=== PATIENT | female | born 2000 | race Two or more races ===

== ENCOUNTER 2020-12-15 18:49 | Emergency (ER) | payer OTHER, SELFPAY ==
--- NOTE | ~2020-12-15 | US_ITS ---
EXAMINATION: US VENOUS WITH DOPPLER UPPER EXTREMITY, LEFT CLINICAL INFORMATION: Left upper extremity pain COMPARISON: None TECHNIQUE: Ultrasound of the upper extremity is performed using compression sonography and color and pulse Doppler flow with assessment of augmentation of flow. There is also imaging and Doppler assessment of the jugular and subclavian veins. Spectral analysis with color-flow imaging is performed. FINDINGS: There is an echogenic clot seen in the left jugular vein. Respiratory variation, normal compression, and augmented flow are noted throughout the upper extremity including subclavian, axillary, brachial, cubital, and radial and ulnar veins. There is normal flow in the internal jugular and subclavian veins. There is no visible deep or superficial thrombophlebitis. If the patient's symptoms progress, a followup ultrasound in 5 -7 days might be of value to exclude proximal propagation from a nonvisualized distal arm vein. US/US venous duplex UE LT IMPRESSION: There is nonocclusive echogenic clot seen in the left internal jugular vein. The left subclavian, axillary and rest of left upper extremity veins are patent.
[2020-12-15 18:56] VITALS: BP 116/70; PULSE 90; RESP 18; TEMP 36.8; O2SAT 99; BMI 27.0
[2020-12-15 19:38] LABS: Glucose Urine UA NEG (NEG); Leukocyte Esterase Urine NEG (NEG); Nitrite Urine NEG (NEG); Specific Gravity - Urine 1.025 (1.005-1.025); UPreg QC Valid YES; Urine Blood NEG (NEG); Urine Ketones 5 MG/DL (NEG); Urine Pregnancy POSITIVE (NEGATIVE); Urine Protein NEG (NEG-TRACE)
[2020-12-15 19:39] LABS: Appearance Urine CLEAR; Color Urine YELLOW
--- NOTE | 2020-12-15 21:05 | ED_ITS ---
HPI - General Adult General Chief complaint: General Medical Stated complaint: ? arm pain Time Seen by Provider: 12/15/20 19:33 Source: patient Mode of arrival: ambulatory Limitations: no limitations History of Present Illness HPI narrative: patient presents to ED for left shoulder /upper arm pain that is worse on movement. patient states having pain since this morning. Patient denies any trauma to left upper extremity. Patient also would like a urinary test to see if she is . Patient missed her period. Related Data Allergies Allergy/AdvReac Type Severity Reaction Status Date / Time No Known Allergies Allergy Verified 12/15/20 18:56 Review of Systems Review of Systems: Yes all other systems are reviewed and are negative Constitutional: Constitutional: Reports as per HPI and Reports no additional constitutional complaints Eyes: Eyes: Reports as per HPI and Reports no additional eye complaints ENT: Reports system reviewed and no additional complaints, except as documented and Reports as per HPI Cardiovascular: Cardiovascular: Reports as per HPI and Reports no additional cardiovascular complaints Respiratory: Respiratory: Reports as per HPI and Reports no additional respiratory complaints Gastrointestinal: Gastrointestinal: Reports as per HPI and Reports no additional gastrointestinal complaints Genitourinary: Genitourinary: Reports no additional female genitourinary complaints and Reports as per HPI Musculoskeletal: Musculoskeletal: Reports no additional musculoskeletal complaints, Reports as per HPI and Reports arthralgias ( Left shoulder pain) Neurologic: Reports system reviewed and no additional complaints, except as d ocumented and Reports as per HPI Psychiatric: Psychiatric: Reports no additional psychiatric complaints and Reports as per HPI [facility] Past Medical History Medical History (Updated 12/15/20 @ 21:26 by KAMI Herman) No pertinent past medical history Social History Social History Advance Directives: No Advance Directives Information Provided: Yes Physical Exam Vital Signs: Vital Signs: Last Vital Signs Temp 98.2 F 12/15/20 18:56 Pulse 90 12/15/20 18:56 Resp 18 12/15/20 18:56 BP 116/70 12/15/20 18:56 Pulse Ox 99 12/15/20 18:56 Body Mass Index 27.0 Const: General: cooperative, healthy appearing, comfortable, no acute distress, well developed, alert and awake; No Physically active Orientation/consciousness: patient oriented x3 HENMT: Head: Yes normal to inspection, Yes No palpable skull fracture present, Yes normocephalic, Yes atraumatic and No abrasion Eyes: General: appearance normal, both eyes and all related structures Neck: Neck: Yes normal visual inspection, Yes full ROM, Yes no lymphadenopathy, Yes no meningeal signs, Yes trachea midline, Yes supple and No tender Chest: Chest palpation & inspection: normal inspection of the chest and normal palpation of entire chest wall Resp: Effort & Inspection: normal respiratory effort and able to speak in complete sentences Auscultation: clear to auscultation bilaterally Cardio: Jugular venous distension: no JVD Heart sounds: S1 normal heart sound present and S2 normal heart sound present GI: Inspection: Yes normal to inspection and No abdominal wall ecchymosis Palpation (GI): Soft to palpation, not firm, nontender and no guarding : General: No CVA tenderness and Yes no CVA tenderness Back/Spine/Pelvis: Back: no CVA tenderness, No CVA tenderness and No back tenderness Skin: General skin exam: no rashes or lesions noted and elasticity normal Neuro: General: patient oriented x3, gait normal, no meningeal signs and CN's II-XI intact bilaterally Cranial nerves: Yes CN's II-XII intact bilaterally Extrem: General: Yes normal to inspection Shoulder/upper arm images: 1. tenderness on palpation and on range of motion. Negative for any erythema, warmth, swelling of left upper extremity, coldness, or hotness. Vascular is/motor/ neuro exam of left upper extremity intact. negative for any deformity or ecchymosis of left upper extremity. Not suspecting fracture Psych: Appearance: grossly normal, well kempt and not disheveled Course Course Course Narrative: patient positive. Patient and family refused x-ray due to radiation exposure. Not suspecting fracture may be muscular but due to positive and left shoulder pain without any trauma was sent for ultrasound to make sure there is DVT in upper extremity. Reevaluation(s) Reevaluation #1: Urine came back Positive for . Left upper extremity ultrasound came back negative for blood clot. On left upper extremity shows nonocclusive clot in left internal jugular vein spoke with Dr. Duncan the radiologist any states the clot is of non significant and is not causing any occlusion. spoke With Dr. Person agreeable with plan for discharge Time: 21:24 Medical Decision Making MDM Narrative Medical decision making narrative: . shoulder pain Lab Data Labs: Lab Results 12/15/20 12/15/20 Range/Units 19:16 19:16 Urine Color YELLOW Urine Appearance CLEAR Urine pH 6.0 (5.0-8.0) Ur Specific [place] 1.025 (1.005-1.025) Urine Protein NEG (NEG-TRACE) MG/DL Urine Glucose (UA) NEG (NEG) MG/DL Urine Ketones 5 (NEG) MG/DL Urine Blood NEG (NEG) Urine Nitrite NEG (NEG) Ur Leukocyte Esterase NEG (NEG) Urine Test POSITIVE H (NEGATIVE) Discharge Plan Discharge Clinical Impression: Acute shoulder pain, Patient Disposition: Home, Self-Care Instructions: (ED), Shoulder Pain (ED) Additional Instructions: ultrasound came back negative for blood clot. Came back positive for . Return to the ED immediately for any chest pain, shortness of breath, left upper extremity swelling, redness, abdominal pain, vaginal blee ding, vaginal discharge, nausea, vomiting, inability tolerate solid food/liquid, or any other concerning symptoms. Only Tylenol is safe in . Referrals: Rj Kauffman MD [Physician] - 2 days ( Incidental in ER.) Print Language: Albanian
== END 2020-12-15 21:50 | disposition home or self-care (01) ==
PROVIDERS: Emergency Provider Internal Medicine; PCP Pediatrics
DX: O99.419 Diseases of the circulatory system complicating pregnancy, unspecified trimester (principal); I82.C12 Acute embolism and thrombosis of left internal jugular vein; O99.891 Other specified diseases and conditions complicating pregnancy; M25.512 Pain in left shoulder; Z3A.00 Weeks of gestation of pregnancy not specified
CPT/HCPCS: 81003; 81025; 93971; 99284

== ENCOUNTER → 2020-12-17 13:13 | Outpatient (BNVA) | payer OTHER, SELFPAY | PROVIDERS: Visit Provider Advanced Practice Midwife | DX: N92.6 Irregular menstruation, unspecified (principal) | CPT/HCPCS: 99212 ==

== ENCOUNTER 2020-12-26 08:24 | Outpatient (REF) | payer OTHER, SELFPAY ==
--- NOTE | ~2020-12-26 | US_ITS ---
EXAMINATION: OBSTETRICAL ULTRASOUND, FIRST TRIMESTER HISTORY: 20-year-old at the 10.2 weeks of gestation Viability LMP: 10/15/2020 COMPARISON: None TECHNIQUE: Real time transabdominal imaging with color and M-mode Doppler. FINDINGS: A single, live IUP CRL of 32.5 mm c/w 10.1wks is noted. Heart Rate: 165 beats per minute. Both maternal ovaries are seen and appear normal. GESTATIONAL AGE: 1. GA from LMP: 10.2 wks 2. GA from AUA: 10.1 wks ESTIMATED DATE OF DELIVERY: 1. SCOTT from LMP: 07/22/2021 2. SCOTT from AUA: 07/23/2021 US/US OB <= 14 weeks fetus IMPRESSION: 1. A single live IUP 2. Size equals dates, CRL confirms her due date of 07/22/2021. 3. Normal ovaries 4. No free fluid This note was generated with a voice recognition program. Please excuse any errors which may have been overlooked during my review of this note. Sometimes these errors may affect the content or meaning of a given sentence.
== END 2020-12-26 08:25 | disposition home or self-care (01) ==
LOC: HO.US 08:24
PROVIDERS: Visit Provider Advanced Practice Midwife
DX: Z34.91 Encounter for supervision of normal pregnancy, unspecified, first trimester (principal)
CPT/HCPCS: 76801

== ENCOUNTER 2021-01-05 14:04 | Outpatient (REF) | payer OTHER, SELFPAY ==
[2021-01-05 17:14] LABS: Hemoglobin 12.8 g/dl (12.0-16.0); Mean Corpuscular HGB Conc 34.6 g/dl (31.0-35.0); Mean Corpuscular Hemoglobin 28.6 pg (27.0-33.0); Mean Corpuscular Volume 82.8 fL (80-98); Mean Platelet Volume 11.9 fL (9.4-12.3); Platelet Count 232 X10*3/uL (160-400); Red Blood Count 4.47 X10*6/uL (4.20-5.50); Red Cell Distribution Width 12.5 % (11.0-16.0); White Blood Count 8.5 X10*3/uL (4.8-10.8)
[2021-01-05 17:20] LABS: Glucose 1 Hour PP 50gm Dose 123 mg/dL (60-140)
[2021-01-05 17:27] LABS: Amphetamine Screen Urine Not Detected (Not Detect); Barbiturates, Urine Not Detected (Not Detect); Benzodiazepines Screen Urine Not Detected (Not Detect); Cannabinoid Screen Urine Not Detected (Not Detect); Cocaine Screen Urine Not Detected (Not Detect); Opiate Screen Urine Not Detected (Not Detect); Phencyclidine Screen Urine Not Detected (Not Detect)
[2021-01-06 17:37] LABS: Rubella IgG Antibody 1.33 Index
[2021-01-07 08:12] LABS: HBsAGNum1 0.18 S/CO (0.00-0.99); HIV AB/AG Nonreactive (Nonreactive); HIV Num 1 0.18 S/CO (0.00-0.99); Hepatitis B Surface Antigen Negative (Negative)
[2021-01-07 08:17] LABS: Syphilis Screen Nonreactive (Nonreactive)
[2021-01-07 08:32] LABS: ~HepC Num1 0.14 S/CO (0.00-0.79); ~Hepatitis C Antibody Nonreactive (Nonreactive)
== END 2021-01-05 14:05 | disposition home or self-care (01) ==
LOC: HO.LAB 14:04
PROVIDERS: Visit Provider Advanced Practice Midwife
DX: Z32.01 Encounter for pregnancy test, result positive (principal)
CPT/HCPCS: 80307; 85027; 86762; 86780; 86787; 86803; 86850; 86900; 86901; 87086; 87340; 87389; 99212

== ENCOUNTER 2021-01-09 10:55 | Outpatient (REF) | payer OTHER, SELFPAY ==
--- NOTE | ~2021-01-09 | US_ITS ---
EXAMINATION: OBSTETRICAL ULTRASOUND, FIRST TRIMESTER HISTORY: 20-year-old at the 12.2 weeks of gestation NT screening COMPARISON: 12/26/2020 TECHNIQUE: Real time transabdominal imaging with color and M-mode Doppler. FINDINGS: A single, live IUP CRL of 60.2 mm c/w 12.4wks is noted. Heart Rate: 158 beats per minute. Normal yolk sac seen. NT was 0.94.mm. NB Present The embryo appears sonographically wnl for this GA. Ovaries were difficult to visualize. Adnexa appeared within normal limits. GESTATIONAL AGE: 1. Established GA: 12.2 wks 2. GA from AUA: 12.4 wks ESTIMATED DATE OF DELIVERY: 1. Established SCOTT: 07/22/2021 2. SCOTT from [facility]: 07/20/2021 US/US OB 1T nuc measure IMPRESSION: 1. Single live IUP 2. Size equals dates 3. NT of 0.94 mm MFM Consultation: I reviewed the ultrasound findings along with significance of NT measurement. The NT of less than 3mm is generally reassuring. However, the sensitivity for T21 detection is only 60%. I reviewed the availability of serum aneuploidy screening which includes cell-free DNA and placental protein based tests. I discussed the sensitivity, false-positive rate, and other limitations associated with each test. I also reviewed the availability of invasive diagnostic tests that are associated small but definite risk of miscarriage. We also reviewed the differences between screening tests and diagnostic tests. After our discussion, she opted for the First trimester screening that is based on cell-free DNA or non-invasive testing (NIPT). The result will be faxed to your office in approximately 7 days. A follow up at 18 weeks for survey has been scheduled. Thank you very much for this referral. Total time 30 minutes. The time spent was devoted to counseling the patient about the disease and diagnosis, coordinating care including reviewing her records, pertinent lab data and studies, as well as discussing diagnostic evaluation and workup, plan therapeutic interventions and future disposition of care. This includes any additional research needed to obtain further information in formulating the plan of care of this patient. This note was generated with a voice recognition program. Please excuse any errors which may have been overlooked during my review of this note. Sometimes these errors may affect the content or meaning of a given sentence.
== END 2021-01-09 10:56 | disposition home or self-care (01) ==
LOC: HO.US 10:55
PROVIDERS: Visit Provider Advanced Practice Midwife
DX: Z36.82 Encounter for antenatal screening for nuchal translucency (principal); O26.891 Other specified pregnancy related conditions, first trimester; Z3A.12 12 weeks gestation of pregnancy
CPT/HCPCS: 76813

== ENCOUNTER 2021-01-26 13:13 | Outpatient (REF) | payer OTHER, SELFPAY ==
[2021-01-27 03:56] LABS: CT PCR NOT DETECTED (Not Detect.); NG PCR NOT DETECTED (Not Detect.)
[2021-01-27 09:44] LABS: BV Int Neg Control Negative (Negative); BV Int Pos Control Positive (Positive)
== END 2021-01-26 13:14 | disposition home or self-care (01) ==
LOC: HO.LAB 13:13
PROVIDERS: Visit Provider Advanced Practice Midwife
DX: O26.892 Other specified pregnancy related conditions, second trimester (principal); R45.7 State of emotional shock and stress, unspecified; Z36.3 Encounter for antenatal screening for malformations; Z3A.14 14 weeks gestation of pregnancy; Z20.2 Contact with and (suspected) exposure to infections with a predominantly sexual mode of transmission
CPT/HCPCS: 81003; 87480; 87491; 87510; 87591; 87660; 99212

== ENCOUNTER 2021-02-13 01:39 | Emergency (ER) | payer OTHER, SELFPAY ==
[2021-02-13 02:12] VITALS: BP 104/60; PULSE 88; RESP 14; TEMP 36.4; O2SAT 99; BMI 26.1
[2021-02-13 02:23] LABS: COVID-19 Test Negative (Negative); IDNOW Serial# 9DD0AD1C
--- NOTE | 2021-02-13 02:57 | ED_ITS ---
HPI - Nausea/Vomiting/Diarrhea General Chief complaint: Nausea/Vomiting/Diarrhea Stated complaint: chest pain/vomiting (17 wks preg) Time Seen by Provider: 02/13/21 02:47 Source: patient Mode of arrival: ambulatory History of Present Illness HPI Narrative: 20-year-old female, , 17 weeks EGA presents with nausea, vomiting without diarrhea since approximately 9:00 p.m. this evening. Patient endorses that she feels it is secondary to stress. She denies any associated fever, chills, shortness of breath, palpitations and denies any urinary symptoms. Patient, in addition, denies any vaginal bleeding, pelvic cramping, or loss of fluid. Patient states she developed the chest pain after her multiple episodes vomiting. Related Data Previous Rx's Medication Instructions Recorded vitamin with calcium 1 tab PO DAILY #30 tab 12/17/20 no.72-iron 27 mg-folic acid 1 mg tablet ( Vitamins Plus Low Iron) clotrimazole 2 % vaginal cream 1 appful VAGINAL BEDTIME 7 Days 01/29/21 #21 g metronidazole 500 mg tablet 500 mg PO BID 7 Days #14 tab 01/29/21 (Flagyl) Allergies Allergy/AdvReac Type Severity Reaction Status Date / Time No Known Allergies Allergy Verified 01/05/21 14:36 Review of Systems Review of Systems: Pertinent positives and is as stated in HPI 10 point review of systems is otherwise negative. [facility] Past Medical History Source: nursing notes reviewed Medical History No pertinent past medical history Family History Family History Mother Asthma Father Hypertension Maternal Grandmother Hx of diabetes mellitus Hx of essential hypertension Paternal Grandfather No problems noted. Social History Social History Household Members: Family Alcohol intake: never Patient Tobacco Use Status: Never used Tobacco Use of substances other than those prescribed or required for medical reasons: No Trauma History: none Special ento needs: No Agree to transfusion: Yes Advance Directives: No Advance Directives Information Provided: Yes Patient : Yes (17 WKS) Sexual orientation: Straight/Heterosexual Gender identity: Female Physical Exam Vital Signs: Vital Signs: Last Vital Signs Temp 97.6 F 02/13/21 02:12 Pulse 77 02/13/21 05:12 Resp 16 02/13/21 05:12 BP 114/64 02/13/21 05:12 Pulse Ox 100 02/13/21 05:12 Body Mass Index 26.1 VITAL SIGNS: Reviewed. GENERAL: Well developed, well nourished, in no acute distress. HEAD: Normocephalic/atraumatic EYES: PERRLA, EOMI EARS: Ext canals without abnormality, TMs non-bulging and non-erythematous NOSE: Nares patent bilateral OROPHARYNX: no oral lesions noted, posterior pharynx clear and non-erythematous without noted tonsillar enlargement/erythema/exudates NECK: Supple, no adenopathy LUNGS: Normal breath sounds. No adventitious sounds or accessory muscle use. SpO2<99> CARDIOVASCULAR: Regular rate and rhythm without noted murmurs ABDOMEN: Soft, gravid, non-tender, non-distended with bowel sounds. SKIN: Inspection of the skin reveals no rashes NEUROLOGIC: Alert and oriented x 4. Strength and sensation to light touch were grossly intact x 4. FHR: 147 Course Course Course Narrative: 20-year-old female with history and clinical presentation sugg estive of possible UTI, gastroenteritis with subsequent dehydration. Will obtain basic labs and administer IV fluids as well as antiemetic. Review of all investigations negative for acute findings and on re-evaluation patient reports significant improvement in her nausea and vomiting and was able to tolerate oral intake. She was otherwise discharged home in stable condition with instructions to follow-up with her OB provider. MDM - Nausea/Vomiting/Diarrhea Lab Data Result diagrams: 02/13/21 03:29 02/13/21 03:29 Labs: Lab Results 02/13/21 02/13/21 02/13/21 Range/Units 02:01 03:29 03:29 WBC 9.5 (4.8-10.8) X10*3/uL RBC 4.06 L (4.20-5.50) X10*6/uL Hgb 11.8 L (12.0-16.0) g/dl Hct 34.4 L (37-47) % MCV 84.7 (80-98) fL MCH 29.1 (27.0-33.0) pg MCHC 34.3 (31.0-35.0) g/dl RDW 13.1 (11.0-16.0) % Plt Count 202 (160-400) X10*3/uL MPV 11.4 (9.4-12.3) fL Immature Gran % (Auto) 0.3 (0.0-0.4) % Neut % (Auto) 79.8 H (45-73) % Lymph % (Auto) 14.5 L (20-40) % [place] % (Auto) 4.5 (2-11) % Eos % (Auto) 0.6 (0-4) % Baso % (Auto) 0.3 (0-2) % Lymph # (Auto) 1.4 (1.2-4.9) X10*3/uL [place] # (Auto) 0.4 (0.1-1.2) X10*3/uL Eos # (Auto) 0.1 (0.0-0.4) X10*3/uL Baso # (Auto) 0.0 (0.0-0.2) X10*3/uL Abs Immat Gran (auto) 0.03 (0.00-0.03) X10*3/uL Absolute Neuts (auto) 7.6 (2.0-8.3) X10*3/uL Absolute Nucleated RBC 0.000 (0.0-0.012) X10*3/uL Nucleated RBC % (auto) 0.0 (0.0-0.2) /100WBC Sodium 136 (135-145) mmol/L Potassium 4.3 (3.3-5.1) mmol/L Chloride 106 (96-108) mmol/L Carbon Dioxide 21 L (22-29) mmol/L Anion Gap 13 (12-20) BUN 7 L (9-16) mg/dL Creatinine 0.65 (0.5-1.4) mg/dL Estim Creat Clear Calc 131.6 Estimated GFR > 60 Random Glucose 80 (60-115) mg/dL Calcium 9.6 (8.4-10.2) mg/dL Total Bilirubin 0.4 (0.0-1.0) mg/dL AST 27 (5-31) U/L ALT 31 (0-31) U/L Alkaline Phosphatase 48 (39-117) U/L Total Protein 6.6 (6.5-8.0) g/dL Albumin 3.9 (3.5-5.0) g/dL Urine Color Urine Appearance Urine pH (5.0-8.0) Ur Specific [place] (1.005-1.025) Urine Protein (NEG-TRACE) MG/DL Urine Glucose (UA) (NEG) MG/DL Urine Ketones (NEG) MG/DL Urine Blood (NEG) Urine Nitrite (NEG) Ur Leukocyte Esterase (NEG) COVID-19 (KELLY) Negative (Negative) COVID-19 Clin Com See Note 02/13/21 Range/Units 03:29 WBC (4.8-10.8) X10*3/uL RBC (4.20-5.50) X10*6/uL Hgb (12.0-16.0) g/dl Hct (37-47) % MCV (80-98) fL MCH (27.0-33.0) pg MCHC (31.0-35.0) g/dl RDW (11.0-16.0) % Plt Count (160-400) X10*3/uL MPV (9.4-12.3) fL Immature Gran % (Auto) (0.0-0.4) % Neut % (Auto) (45-73) % Lymph % (Auto) (20-40) % [place] % (Auto) (2-11) % Eos % (Auto) (0-4) % Baso % (Auto) (0-2) % Lymph # (Auto) (1.2-4.9) X10*3/uL [place] # (Auto) (0.1-1.2) X10*3/uL Eos # (Auto) (0.0-0.4) X10*3/uL Baso # (Auto) (0.0-0.2) X10*3/uL Abs Immat Gran (auto) (0.00-0.03) X10*3/uL Absolute Neuts (auto) (2.0-8.3) X10*3/uL Absolute Nucleated RBC (0.0-0.012) X10*3/uL Nucleated RBC % (auto) (0.0-0.2) /100WBC Sodium (135-145) mmol/L Potassium (3.3-5.1) mmol/L Chloride (96-108) mmol/L Carbon Dioxide (22-29) mmol/L Anion Gap (12-20) BUN (9-16) mg/dL Creatinine (0.5-1.4) mg/dL Estim Creat Clear Calc Estimated GFR Random Glucose (60-115) mg/dL Calcium (8.4-10.2) mg/dL Total Bilirubin (0.0-1.0) mg/dL AST (5-31) U/L ALT (0-31) U/L Alkaline Phosphatase (39-117) U/L Total Protein (6.5-8.0) g/dL Albumin (3.5-5.0) g/dL Urine Color DARK YELLOW Urine Appearance CLEAR Urine pH 6.0 (5.0-8.0) Ur Specific [place] >= 1.030 H (1.005-1.025) Urine Protein TRACE (NEG-TRACE) MG/DL Urine Glucose (UA) NEG (NEG) MG/DL Urine Ketones >=80 (NEG) MG/DL Urine Blood NEG (NEG) Urine Nitrite NEG (NEG) Ur Leukocyte Esterase NEG (NEG) COVID-19 (KELLY) (Negative) COVID-19 Clin Com ECG Data Attestation: I personally reviewed and interpreted this ECG as follows: Prior ECG tracings: not available for review Interpretation: Normal sinus rhythm, HR-82, no STEMI, FL/QRS/QTC within normal limits. Discharge Plan Discharge Clinical Impression: Gastroenteritis, , Dehydration Patient Disposition: Home, Self-Care Instructions: Dehydration (ED), Gastroenteritis (ED) Additional Instructions: 1. Resume all medications as prescribed, this should include your vitamins. 2. Continue to increase hydration especially with water. 3. Please follow-up with your OB provider in the next 1-2 days for re-evaluation and further outpatient management. Return to the ER for acute worsening of your symptoms. Prescriptions: No Action metronidazole [Flagyl] 500 mg tablet 500 mg PO BID 7 Days Qty: 14 RF: 0 clotrimazole 2 % cream 1 appful vaginal BEDTIME 7 Days Qty: 21 RF: 0 Vitamin Plus Low Iron 27 mg iron- 1 mg tablet 1 tab PO DAILY Qty: 30 RF: 11 Referrals: Guerda Persaud CNM [Certified Nurse Accounts Receivable Executive] - 2 days (Nausea, vomiting)
[2021-02-13 03:33] LABS: MANUAL DIFF FLAG NO
[2021-02-13 03:34] VITALS: BP 102/64; PULSE 82; RESP 16; O2SAT 99
[2021-02-13] MEDS: 0.9 % Sodium Chloride 1,000 ML 999 ML IV (03:34)
[2021-02-13 03:37] LABS: Basophils Percent Auto 0.3 % (0-2); Eosinophils Absolute Auto 0.1 X10*3/uL (0.0-0.4); Eosinophils Percent Auto 0.6 % (0-4); Glucose Urine UA NEG (NEG); Hematocrit 34.4 % (37-47); Hemoglobin 11.8 g/dl (12.0-16.0); Imm Gran Abs Auto 0.03 X10*3/uL (0.00-0.03); Imm Gran Pct Auto 0.3 % (0.0-0.4); Leukocyte Esterase Urine NEG (NEG); Lymphocytes Absolute Auto 1.4 X10*3/uL (1.2-4.9); Lymphocytes Percent Auto 14.5 % (20-40); Mean Corpuscular HGB Conc 34.3 g/dl (31.0-35.0); Mean Corpuscular Hemoglobin 29.1 pg (27.0-33.0); Mean Corpuscular Volume 84.7 fL (80-98); Mean Platelet Volume 11.4 fL (9.4-12.3); Monocytes Absolute Auto 0.4 X10*3/uL (0.1-1.2); Monocytes Percent Auto 4.5 % (2-11); Neutrophils Absolute Auto 7.6 X10*3/uL (2.0-8.3); Neutrophils Percent Auto 79.8 % (45-73); Nitrite Urine NEG (NEG); Platelet Count 202 X10*3/uL (160-400); Red Blood Count 4.06 X10*6/uL (4.20-5.50); Red Cell Distribution Width 13.1 % (11.0-16.0); Specific Gravity - Urine >= 1.030 (1.005-1.025); Urine Blood NEG (NEG); Urine Ketones >=80 MG/DL (NEG); Urine Protein TRACE MG/DL (NEG-TRACE); White Blood Count 9.5 X10*3/uL (4.8-10.8)
[2021-02-13] MEDS: ondansetron HCL 4 MG/2 ML VIAL IVPUSH (03:37)
[2021-02-13 03:38] LABS: Appearance Urine CLEAR; Color Urine DARK YELLOW
[2021-02-13 04:03] LABS: Alanine Aminotransferase 31 U/L (0-31); Albumin Level 3.9 g/dL (3.5-5.0); Alkaline Phosphatase 48 U/L (39-117); Anion Gap 13 (12-20); Aspartate Amino Transferase 27 U/L (5-31); Bilirubin Total 0.4 mg/dL (0.0-1.0); Blood Urea Nitrogen 7 mg/dL (9-16); Calcium 9.6 mg/dL (8.4-10.2); Carbon Dioxide 21 mmol/L (22-29); Chloride 106 mmol/L (96-108); Creatinine Clr Calc Pharmacy 131.6; Estimated Glomerular Filt Rate > 60; Glucose Random 80 mg/dL (60-115); Potassium 4.3 mmol/L (3.3-5.1); Sodium 136 mmol/L (135-145); Total Protein 6.6 g/dL (6.5-8.0)
--- NOTE | 2021-02-13 04:24 | PC.NURSE ---
heart tones 147.
[2021-02-13 05:12] VITALS: BP 114/64; PULSE 77; RESP 16; O2SAT 100
--- NOTE | 2021-02-13 07:58 | ECG_ITS ---
Test Reason : CHEST PAIN Blood Pressure : / mmHG Vent. Rate : 082 BPM Atrial Rate : 082 BPM P-R Int : 140 ms QRS Dur : 076 ms QT Int : 372 ms P-R-T Axes : 045 062 031 degrees QTc Int : 434 ms Normal sinus rhythm with sinus arrhythmia Normal ECG No previous ECGs available Referred By: Sonya Poole Electronically Signed By:KAYKAY KAUFFMAN
== END 2021-02-13 06:11 | disposition home or self-care (01) ==
PROVIDERS: Emergency Provider Student in an Organized Health Care Education/Training Program; PCP Pediatrics
DX: O99.612 Diseases of the digestive system complicating pregnancy, second trimester (principal); K52.9 Noninfective gastroenteritis and colitis, unspecified; O26.892 Other specified pregnancy related conditions, second trimester; E86.0 Dehydration; Z3A.17 17 weeks gestation of pregnancy; Z20.822 Contact with and (suspected) exposure to COVID-19
CPT/HCPCS: 36415; 80053; 81003; 85025; 87635; 93005; 96361; 96374; 99284; J2405

== ENCOUNTER → 2021-02-26 09:33 | Outpatient (BNVA) | payer OTHER, SELFPAY | PROVIDERS: PCP Pediatrics; Visit Provider Advanced Practice Midwife | DX: Z34.02 Encounter for supervision of normal first pregnancy, second trimester (principal); Z3A.19 19 weeks gestation of pregnancy | CPT/HCPCS: 99212 ==

== ENCOUNTER 2021-02-27 12:29 | Outpatient (REF) | payer OTHER, SELFPAY ==
--- NOTE | ~2021-02-27 | US_ITS ---
EXAMINATION: US OBSTETRICAL CLINICAL INFORMATION: 20-year-old at 19.2 weeks of gestation Screening for anomaly COMPARISON: 01/09/2021 TECHNIQUE: Real-time transabdominal ultrasound was performed using C1-5 megahertz transducer. FINDINGS: A single, active, fetus is seen in breech presentation. The placenta is anterior without previa, and the amniotic fluid volume is wnl. MEASUREMENTS: 1. Biparietal Diameter: 4.5 cm; 19.0 wks 2. Occipital Frontal Diameter: 5.8 cm 3. Head Circumference: 16.5 cm; 19.2 wks 4. Abdominal Circumference: 13.7 cm; 19.1 wks 5. Femur Length: 2.9 cm; 19.1 wks 6. Humerus Length: 2.8 cm; 19.1 wks 7. Tibia Length: 2.5 cm; 19.1 wks 8. Ulna Length: 2.5 cm; 19.1 wks 9. Lateral ventricle: 0.8 cm 10. Cerebellum: 2.0 cm; 20.1 wks 11. Cisterna Magna: 0.52 cm 12. Nuchal Fold: 2.9 mm 13. Heart Rate: 155 beats per minute Rt ovary: normal Lt ovary: normal Cervical length 3.9 cm on T/A. GESTATIONAL AGE: 1. Established GA: 19.2 wks 2. GA from [facility]: 19.2 wks ESTIMATED DATE OF DELIVERY: 1. Established SCOTT: 07/22/2021 2. SCOTT from [facility]: 07/22/2021 ANATOMY: The visualized anatomy includes but not limited to: 1. Cranium: Normal 2. Intracranial anatomy: cavum septum pellucidi, lateral ventricles, choroid plexus, cerebellum, posterior fossa, third and fourth ventricles. 3. face: orbits, lip/palate, profile, nasal bone 4. Heart: four-chamber view of the heart, ventricular septum, foramen ovale, pulmonary vein, left and right outflow tracts, three-vessel view, 3 vessel trachea view, aortic and ductal arches, situs.. 5. Diaphragm: Normal 6. Abdominal wall: Normal 7. Cord Insertion: Normal 8. Spine: Cervical, thoracic, lumbar, sacral. 9. Stomach: Normal size and shape 10. Right Kidney: Normal 11. Left Kidney: Normal 12. 3 vessel cord: Normal 13. Upper extremity: Open hands, fifth digit. 14. Lower extremity: Tibia, fibula, bilateral feet. 15. Bladder: Normal 16. Genitalia: Female, patient aware US/US OB /maternal detail IMPRESSION: 1. Single, living, intrauterine with appropriate biometry. 2. Normal survey DISCUSSION: I reviewed today's ultrasound findings. We discussed the limitations of ultrasound in diagnosing aneuploidy and other congenital abnormalities. I reviewed the differences between screening test and diagnostic test. Amniocentesis was discussed and declined. She was informed that the baseline incidence of congenital abnormalities is approximately 3-5%. Not all these conditions are diagnosable in utero. RECOMMENDATIONS: 1. Follow-up when necessary Thank you for allowing me to participate in her care. Total time 30 minutes. The time spent was devoted to counseling the patient about the disease and diagnosis, coordinating care including reviewing her records, pertinent lab data and studies, as well as discussing diagnostic evaluation and workup, plan therapeutic interventions and future disposition of care. This includes any additional research needed to obtain further information in formulating the plan of care of this patient. This note was generated with a voice recognition program. Please excuse any errors which may have been overlooked during my review of this note. Sometimes these errors may affect the content or meaning of a given sentence.
== END 2021-02-27 12:30 | disposition home or self-care (01) ==
LOC: HO.US 12:29
PROVIDERS: Visit Provider Advanced Practice Midwife
DX: Z34.92 Encounter for supervision of normal pregnancy, unspecified, second trimester (principal); Z36.3 Encounter for antenatal screening for malformations
CPT/HCPCS: 76811

== ENCOUNTER → 2021-03-27 15:18 | Outpatient (BNVA) | payer OTHER, SELFPAY | PROVIDERS: PCP Pediatrics; Visit Provider Advanced Practice Midwife | DX: Z34.92 Encounter for supervision of normal pregnancy, unspecified, second trimester (principal); Z3A.23 23 weeks gestation of pregnancy | CPT/HCPCS: 81003; 99212 ==

== ENCOUNTER → 2021-04-24 15:19 | Outpatient (BNVA) | payer OTHER, SELFPAY | PROVIDERS: Visit Provider Advanced Practice Midwife | DX: Z34.02 Encounter for supervision of normal first pregnancy, second trimester (principal); Z3A.27 27 weeks gestation of pregnancy | CPT/HCPCS: 99212 ==

== ENCOUNTER 2021-04-28 11:12 | Outpatient (REF) | payer OTHER, SELFPAY ==
[2021-04-28 12:08] LABS: Hematocrit 33.8 % (37.0-47.0); Hemoglobin 11.6 g/dl (12.0-16.0); Mean Corpuscular HGB Conc 34.3 g/dl (31.0-35.0); Mean Corpuscular Volume 87.3 fL (80.0-98.0); Mean Platelet Volume 11.8 fL (9.4-12.3); Platelet Count 184 X10*3/uL (160-400); Red Blood Count 3.87 X10*6/uL (4.20-5.50); Red Cell Distribution Width 12.9 % (11.0-16.0); White Blood Count 8.5 X10*3/uL (4.8-10.8)
[2021-04-28 13:46] LABS: Glucose 1 Hour PP 50gm Dose 90 mg/dL (60-140)
[2021-04-29 08:57] LABS: Syphilis Screen Nonreactive (Nonreactive)
== END 2021-04-28 11:13 | disposition home or self-care (01) ==
LOC: HO.LAB 11:12
PROVIDERS: PCP Pediatrics; Visit Provider Advanced Practice Midwife
DX: Z34.92 Encounter for supervision of normal pregnancy, unspecified, second trimester (principal)
CPT/HCPCS: 36415; 85027; 86780

== ENCOUNTER → 2021-05-08 15:13 | Outpatient (BNVA) | payer OTHER, SELFPAY | PROVIDERS: Visit Provider Advanced Practice Midwife | DX: Z34.03 Encounter for supervision of normal first pregnancy, third trimester (principal); Z3A.29 29 weeks gestation of pregnancy | CPT/HCPCS: 99212 ==

== ENCOUNTER → 2021-05-22 15:07 | Outpatient (BNVA) | payer OTHER, SELFPAY | PROVIDERS: Visit Provider Advanced Practice Midwife | DX: Z34.03 Encounter for supervision of normal first pregnancy, third trimester (principal); Z3A.31 31 weeks gestation of pregnancy | CPT/HCPCS: 99212 ==

== ENCOUNTER → 2021-06-05 10:56 | Outpatient (BNVA) | payer OTHER, SELFPAY | PROVIDERS: Visit Provider Advanced Practice Midwife | DX: O99.013 Anemia complicating pregnancy, third trimester (principal); D64.9 Anemia, unspecified; Z3A.33 33 weeks gestation of pregnancy | CPT/HCPCS: 81003; 99212 ==

== ENCOUNTER → 2021-06-17 14:12 | Outpatient (BNVA) | payer OTHER, SELFPAY | PROVIDERS: Visit Provider Advanced Practice Midwife | DX: O36.5930 Maternal care for other known or suspected poor fetal growth, third trimester, not applicable or unspecified (principal); Z3A.34 34 weeks gestation of pregnancy | CPT/HCPCS: 81003; 99212 ==

== ENCOUNTER → 2021-07-02 12:48 | Outpatient (BNVA) | payer OTHER, SELFPAY | PROVIDERS: PCP Pediatrics; Visit Provider Advanced Practice Midwife | DX: O98.513 Other viral diseases complicating pregnancy, third trimester (principal); U07.1 COVID-19; Z3A.37 37 weeks gestation of pregnancy | CPT/HCPCS: 99212 ==

== ENCOUNTER 2021-07-09 14:00 | Outpatient (REF) | payer OTHER, SELFPAY | END 2021-07-09 14:01 | disposition home or self-care (01) | LOC: HO.LAB 14:00 | PROVIDERS: PCP Pediatrics; Visit Provider Obstetrics & Gynecology | DX: O36.5930 Maternal care for other known or suspected poor fetal growth, third trimester, not applicable or unspecified (principal); Z86.16 Personal history of COVID-19; Z3A.38 38 weeks gestation of pregnancy | CPT/HCPCS: 81003; 87081; 99212 ==

== ENCOUNTER 2021-07-10 09:59 | Outpatient (REF) | payer OTHER, SELFPAY ==
--- NOTE | ~2021-07-10 | US_ITS ---
EXAMINATION: OBSTETRICAL ULTRASOUND, Follow up HISTORY: 20-year-old at 38.2 weeks of gestation Size less than dates COMPARISON: 02/27/2021 TECHNIQUE: Real time transabdominal imaging with color and M-mode Doppler. PRESENTATION: Vertex PLACENTA LOCATION: Anterior without previa AMNIOTIC FLUID: SALAZAR 10.8 cm MEASUREMENTS: 1. Biparietal Diameter: 8.9 cm; 36.0 wks 2. Head Circumference: 33.9 cm; 39.0 wks 3. Abdominal Circumference: 30.9 cm; 35.0 wks 4. Femur Length: 6.9 cm; 35.3 wks 5. Heart Rate: 140 beats per minute WEIGHT: EFW: 2649 grams (5 lbs 13 oz) -- 6 %. BIOPHYSICAL PROFILE: Motion: 2 Tone: 2 Breathin Amniotic Fluid: 2 Total score: 8/8 UA Doppler: SD 2.9 GESTATIONAL AGE: 1. Established GA: 38.2 wks 2. GA from AUA: 36.3 wks ESTIMATED DATE OF DELIVERY: 1. Established SCOTT: 07/22/2021 2. SCOTT from AUA: 08/04/2021 US/US OB velocimetry umbilical ar IMPRESSION: 1. A single active fetus is in vertex presentation 2. Size <Dates, EFW corresponds to 6th percentile 3. Reassuring biophysical profile 4. Normal UA Doppler S/D ratio I reviewed today's ultrasound findings and discussed the limitations of estimating weights. Approximately 70% of fetuses whose EFW falls below the 10th percentile are constitutionally small but healthy fetuses growing to their full genetic potential. Approximately 30% may be experiencing placental insufficiency and are not growing to their full genetic potential. Often it is difficult to distinguish the two in utero. The amniotic fluid volume is within normal limits as is the S/D ratio in the umbilical artery. The fetus is active. We discussed the risks and benefits of expectant management versus induction of labor at this gestational age. Given the reassuring testing, an expectant management until approximately 39-40 weeks of gestation is reasonable. Meanwhile I would continue weekly surveillance until delivery. Thank you very much for this referral. Total time 30 minutes. The time spent was devoted to counseling the patient about the disease and diagnosis, coordinating care including reviewing her records, pertinent lab data and studies, as well as discussing diagnostic evaluation and workup, plan therapeutic interventions and future disposition of care. This includes any additional research needed to obtain further information in formulating the plan of care of this patient. This note was generated with a voice recognition program. Please excuse any errors which may have been overlooked during my review of this note. Sometimes these errors may affect the content or meaning of a given sentence.
== END 2021-07-10 10:00 | disposition home or self-care (01) ==
LOC: HO.US 09:59
PROVIDERS: Visit Provider Advanced Practice Midwife
DX: O36.5990 Maternal care for other known or suspected poor fetal growth, unspecified trimester, not applicable or unspecified (principal)
CPT/HCPCS: 76816; 76820

== ENCOUNTER → 2021-07-14 09:58 | Outpatient (BNVA) | payer OTHER, SELFPAY | PROVIDERS: PCP Pediatrics; Visit Provider Advanced Practice Midwife | DX: O36.5930 Maternal care for other known or suspected poor fetal growth, third trimester, not applicable or unspecified (principal); Z3A.38 38 weeks gestation of pregnancy | CPT/HCPCS: 59025; 99212 ==

== ENCOUNTER → 2021-07-31 08:43 | Outpatient (BNVA) | payer OTHER, SELFPAY | PROVIDERS: PCP Pediatrics; Visit Provider Advanced Practice Midwife | DX: Z39.2 Encounter for routine postpartum follow-up (principal) | CPT/HCPCS: 99212 ==

== ENCOUNTER → 2021-08-28 10:39 | Outpatient (BNVA) | payer OTHER, SELFPAY | PROVIDERS: PCP Pediatrics; Visit Provider Advanced Practice Midwife | DX: Z39.2 Encounter for routine postpartum follow-up (principal); Z30.011 Encounter for initial prescription of contraceptive pills | CPT/HCPCS: 99212 ==

== ENCOUNTER 2022-03-08 15:31 | Outpatient (REF) | payer OTHER, SELFPAY ==
[2022-03-09 01:28] LABS: CT PCR NOT DETECTED (Not Detect.); NG PCR NOT DETECTED (Not Detect.)
[2022-03-09 12:22] LABS: BV Int Neg Control Negative (Negative); BV Int Pos Control Positive (Positive)
== END 2022-03-08 15:32 | disposition home or self-care (01) ==
LOC: HO.LNP 15:31
PROVIDERS: Visit Provider Advanced Practice Midwife
DX: Z01.419 Encounter for gynecological examination (general) (routine) without abnormal findings (principal); Z20.2 Contact with and (suspected) exposure to infections with a predominantly sexual mode of transmission; N89.8 Other specified noninflammatory disorders of vagina
CPT/HCPCS: 87480; 87491; 87510; 87591; 87660; 88142

== ENCOUNTER → 2022-12-08 14:15 | Outpatient (BNVA) | payer OTHER, SELFPAY | PROVIDERS: PCP Pediatrics; Visit Provider Advanced Practice Midwife | DX: N92.1 Excessive and frequent menstruation with irregular cycle (principal); Z30.09 Encounter for other general counseling and advice on contraception | CPT/HCPCS: 81025; 99212 ==

== ENCOUNTER 2023-05-01 07:24 | Emergency (ER) | payer OTHER, SELFPAY ==
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
[2023-05-01 07:28] VITALS: BP 106/70; PULSE 85; RESP 20; TEMP 36.8; O2SAT 99; BMI 28.9
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
[2023-05-01] MEDS: Acetaminophen 325 MG TABLET 975 MG PO (08:22)
[2023-05-01 09:10] LABS: MANUAL DIFF FLAG NO
[2023-05-01 09:12] LABS: Appearance Urine Cloudy; Basophils Absolute Auto 0.1 X10*3/uL (0.0-0.2); Basophils Percent Auto 0.9 % (0-2); Color Urine Dark Yellow; Eosinophils Absolute Auto 0.1 X10*3/uL (0.0-0.4); Eosinophils Percent Auto 2.4 % (0-4); Glucose Urine UA Negative (Negative); Hematocrit 33.8 % (37.0-47.0); Hemoglobin 11.8 g/dl (12.0-16.0); Imm Gran Abs Auto 0.01 X10*3/uL (0.00-0.03); Imm Gran Pct Auto 0.2 % (0.0-0.4); Leukocyte Esterase Urine Trace (Negative); Lymphocytes Absolute Auto 1.4 X10*3/uL (1.2-4.9); Lymphocytes Percent Auto 23.4 % (20-40); Mean Corpuscular HGB Conc 34.9 g/dl (31.0-35.0); Mean Corpuscular Hemoglobin 29.4 pg (27.0-33.0); Mean Corpuscular Volume 84.1 fL (80.0-98.0); Mean Platelet Volume 11.6 fL (9.4-12.3); Monocytes Absolute Auto 0.4 X10*3/uL (0.1-1.2); Monocytes Percent Auto 6.9 % (2-11); Neutrophils Absolute Auto 3.8 x10*3/uL (2.0-8.3); Neutrophils Percent Auto 66.2 % (45-73); Nitrite Urine Negative (Negative); PH 5.5 (5.0-9.0); Platelet Count 187 X10*3/uL (160-400); Red Blood Count 4.02 X10*6/uL (4.20-5.50); Red Cell Distribution Width 12.6 % (11.0-16.0); Specific Gravity - Urine >= 1.030 (1.005-1.025); UMIC TRIGGER UACC YES; Urine Blood Negative (Negative); Urine Ketones 40 mg/dL (Negative); Urine Protein 30 (1+) mg/dL (Neg-Trace); White Blood Count 5.8 X10*3/uL (4.8-10.8)
[2023-05-01 09:22] LABS: Bacteria Urine 1+ (None Seen); Other Crystals Urine Present; WBC Urine 0-5 /HPF (0-5)
[2023-05-01 09:35] LABS: Alanine Aminotransferase 15 U/L (0-31); Albumin Level 3.8 g/dL (3.5-5.0); Alkaline Phosphatase 69 U/L (39-117); Anion Gap 12 (12-20); Aspartate Amino Transferase 23 U/L (5-31); Bilirubin Direct 0.1 mg/dL (0.0-0.5); Bilirubin Total 0.4 mg/dL (0.0-1.0); Blood Urea Nitrogen 7 mg/dL (9-16); Calcium 9.4 mg/dL (8.4-10.2); Carbon Dioxide 21 mmol/L (22-29); Chloride 107 mmol/L (96-108); Creatinine Clr Calc Pharmacy 123.2; Estimated Glomerular Filt Rate > 60; Glucose Random 87 mg/dL (60-115); HCG Quantitative 2479 mIU/mL; Potassium 3.3 mmol/L (3.3-5.1); Sodium 137 mmol/L (135-145); Total Protein 7.3 g/dL (6.5-8.0)
[2023-05-01 10:27] VITALS: BP 110/59; PULSE 79; RESP 14; O2SAT 100
[2023-05-01 11:07] VITALS: BP 112/68; PULSE 82; RESP 15; TEMP 36.9; O2SAT 99
--- NOTE | 2023-05-01 11:55 | PC.NURSE ---
US RETURNED FOR ADDITIONAL IMAGING. PT DENIES PAIN, RESTING IN NAD AT THIS TIME.
== END 2023-05-01 12:31 | disposition home or self-care (01) ==
PROVIDERS: Nurse Practitioner Family; Emergency Provider Emergency Medicine Emergency Medical Services; PCP Pediatrics
DX: O9A.312 Physical abuse complicating pregnancy, second trimester (principal); Y07.031 Male partner, former, perpetrator of maltreatment and neglect; S06.0X0A Concussion without loss of consciousness, initial encounter; Y04.2XXA Assault by strike against or bumped into by another person, initial encounter; Y93.9 Activity, unspecified; Y92.9 Unspecified place or not applicable; Y99.9 Unspecified external cause status; Z3A.23 23 weeks gestation of pregnancy
CPT/HCPCS: 36415; 70450; 70486; 72125; 76815; 80048; 80076; 81001; 84702; 85025; 99284

== ENCOUNTER 2024-10-10 09:57 | Outpatient (REF) | payer MEDICAID, SELFPAY ==
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
--- OUTSIDE RECORDS SUMMARY | 2024-10-10 11:35 | XMS_ITS | Encounter Summary ---
Author Organization [facility] Address [address] [place] [phone] Phone Care Team Providers Care Manager Fine Dining Name Role Phone Agnieszka Escobar MD Primary Care Provider [phone] Encounter Details Date Type Department Care Team (Late st Contact Info) Description 02/03/2017 Conversion Encounter [facility] [address] [place] [address] Social History Tobacco Use Types Packs/Day Years Used Date Smoking Tobacco: Never Comments:Never smoker Comments Unknown Sex and Gender Information Value Date Recorded Sex Assigned at Not on file Legal Sex Female 5:17 PM EDT Gender Identity Female 07/01/2021 6:41 PM EST Sexual Orientation Not on file documented as of this encounter Plan of Treatment Not on file documented as of this encounter Visit Diagnoses Not on filedocumented in this encounter Care Teams Manager Fine Dining Relationship Specialty Start Date End Date Agnieszka Escobar MD [address] [place] [address] PCP - General 01/28/17 01/25/23 documented as of this encounter
--- OUTSIDE RECORDS SUMMARY | 2024-10-10 11:35 | XMS_ITS | Encounter Summary ---
Author Organization [employer] Address [address] [place] [address] Care Team Providers Care Sanitary Engineer Name Role Phone Theodora Osullivan DO Primary Care Provider [phone] Encounter Details Date Type Department Care Team (Late st Contact Info) Description 10/10/2024 9:00 AM EDT [facility] [address] [place] [address] Theodora Osullivan DO [address] [place] [address] Routine history and physical examination of adult (Primary Dx); BMI 31.0-31.9,adult Social History Tobacco Use Types Packs/Day Years [...] Don't know 10/05/2024 12 :47 PM EDT documented as of this encounter Last Filed Vital Signs Vital Sign Reading [...] Mass Index 31.8 10/10/2024 9:11 AM EDT documented in this encounter Plan of Treatment Scheduled Orders Name Type Priority Associated Diagnoses Orde r Schedule T4, Free Lab Routine Routine history and physical examination of adult BMI 31.0-31.9,adult Expected: 10/10/2024 (Approximate), Expires: 10/10/2025 Lipid Panel, Standard Lab Routine Routine history and physical examination of adult BMI 31.0-31.9,adult Expected: 10/10/2024 (Approximate), Expires: 10/10/2025 TSH Lab Routine Routine history and physical examination of adult BMI 31.0-31.9,adult Expected: 10/10/2024 (Approximate), Expires: 10/10/2025 Vitamin D, 25-Hydroxy, Total, Immunoassay Lab Routine Routine history and physical examination of adult BMI 31.0-31.9,adult Expected: 10/10/2024 (Approximate), Expires: 10/10/2025 Hepatic Function Panel Lab Routine Routine history and physical examination of adult BMI 31.0-31.9,adult Expected: 10/10/2024 (Approximate), Expires: 10/10/2025 Hemoglobin A1c Lab Routine Routine history and physical examination of adult BMI 31.0-31.9,adult Expected: 10/10/2024 (Approximate), Expires: 10/10/2025 CBC Lab Routine Routine history and physical examination of adult BMI 31.0-31.9,adult Expected: 10/10/2024, Expires: 10/10/2025 Basic Metabolic Panel Lab Routine Routine history and physical examination of adult BMI 31.0-31.9,adult Expected: 10/10/2024 (Approximate), Expires: 10/10/2025 Hepatitis B surface antigen, EIA Lab Routine Routine history and physical examination of adult BMI 31.0-31.9,adult Expected: 10/10/2024 (Approximate), Expires: 10/10/2025 Chlamydia/N. Gonorrhoeae RNA, TMA, Urogenitial Microbiology Routine Routine history and physical examination of adult BMI 31.0-31.9,adult Ordered: 10/10/2024 HIV-1/2 Antigen and Antibodies, Fourth Generation, with Reflexes Lab Routine Routine history and physical examination of adult BMI 31.0-31.9,adult Expected: 10/10/2024 (Approximate), Expires: 10/10/2025 Hepatitis C Antibody with Reflex to HCV, RNA, Quantitative, Real-Time PCR Lab Routine Routine history and physical examination of adult BMI 31.0-31.9,adult Expected: 10/10/2024, Expires: 10/10/2025 RPR (Monitor) with Reflex to??Titer Lab Routine Routine history and physical examination of adult BMI 31.0-31.9,adult Expected: 10/10/2024, Expires: 10/10/2025 Hepatitis B Surface Antibody, Qualitative Lab Routine Routine history and physical examination of adult BMI 31.0-31.9,adult Expected: 10/10/2024 (Approximate), Expires: 10/10/2025 Hepatitis A Antibody, Total Lab Routine Routine history and physical examination of adult BMI 31.0-31.9,adult Expected: 10/10/2024 (Approximate), Expires: 10/10/2025 Hepatitis B Core Antibody, Total Lab Routine Routine history and physical examination of adult BMI 31.0-31.9,adult Expected: 10/10/2024 (Approximate), Expires: 10/10/2025 documented as of this encounter Visit Diagnoses Diagnosis Routine history and physical examination of adult- Primary BMI 31.0-31.9,adult documented in this encounter Care Teams Sanitary Engineer Relationship Specialty Start Date End Date Theodora Osullivan DO [address] [place] [phone] PCP - General Family Medicine 10/10/24 documented as of this encounter
--- OUTSIDE RECORDS SUMMARY | 2024-10-10 11:35 | XMS_ITS | Encounter Summary ---
Author Organization [employer] Address [address] [place] [address] Care Team Providers Care Pc Maintenance Technician Name Role Phone Theodora Osullivna DO Primary Care Provider Encounter Details Date Type Department Care Team (Latest Contact Info) Description 10/10/2024 Travel Social History Tobacco Use Types Packs/Day Years Used Date Smoking Tobacco: Never Smokeless Tobacco: Never Alcohol Use Standard Drinks/Week Comments Never 0 (1 standard drink = 0.6 oz pur e alcohol) Comments No Sex and Gender Information Value Date Recorded Sex Assigned at Unknown 10/05/2024 12:47 PM EDT Legal Sex Female 1:21 PM EST Gender Identity Choose not to disclose 12:47 PM EDT Sexual Orientation Don't know 10/05/2024 12 :47 PM EDT documented as of this encounter Plan of Treatment Not on file documented as of this encounter Visit Diagnoses Not on filedocumented in this encounter Care Teams Pc Maintenance Technician Relationship Specialty Start Date End Date Theodora Osullivan DO [address] [place] [id number] PCP - General Family Medicine 10/10/24 documented as of this encounter
--- OUTSIDE RECORDS SUMMARY | 2024-10-10 11:36 | XMS_ITS | Encounter Summary ---
Author Organization [facility] Address [address] [place] [address] Phone Care Team Providers Care Cell Room Operator Name Role Phone Agnieszka Escobar MD Primary Care Provider [phone] Encounter Details Date Type Department Care Team (Late st Contact Info) Description 06/23/2016 Documentation [facility] Family Medicine [address] [place] [address] Family Medicine, Physician [address] [place] [address] Social History Tobacco Use Types Packs/Day Years [...] on filedocumented in this encounter Care Teams Cell Room Operator Relationship Specialty Start Date End Date Agnieszka Escobar MD [address] [place] [address] [place] [address] PCP - General 01/28/17 01/25/23 documented as of this encounter
--- OUTSIDE RECORDS SUMMARY | 2024-10-10 11:36 | XMS_ITS | Encounter Summary ---
Author Organization [facility] Address [address] [place] [address] Phone Care Team Providers Care Call Center Receptionist Name Role Phone Agnieszka Escobar MD Primary Care Provider [phone] Encounter Details Date Type Department Care Team (Late st Contact Info) Description 06/23/2016 Documentation [facility] Family Medicine [address] [place] [address] Family Medicine, Physician [address] [place] [address] Social History Tobacco Use Types Packs/Day Years [...] on filedocumented in this encounter Care Teams Call Center Receptionist Relationship Specialty Start Date End Date Agnieszka Escobar MD [address] [place] [address] [place] [address] PCP - General 01/28/17 01/25/23 documented as of this encounter
--- OUTSIDE RECORDS SUMMARY | 2024-10-10 11:36 | XMS_ITS | Encounter Summary ---
Author Organization [facility] Address [address] [place] [address] Phone Care Team Providers Care Cnc Operator Machinist Name Role Phone Agnieszka Escobar MD Primary Care Provider [phone] Encounter Details Date Type Department Care Team (Late st Contact Info) Description 06/24/2016 Documentation [facility] [place] Family Medicine [address] [place] [address] Family Medicine, Physician [address] [place] [address] Social History Tobacco Use Types Packs/Day Years [...] on filedocumented in this encounter Care Teams Cnc Operator Machinist Relationship Specialty Start Date End Date Agnieszka Escobar MD [address] [place] [address] [place] [address] PCP - General 01/28/17 01/25/23 documented as of this encounter
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
--- OUTSIDE RECORDS SUMMARY | 2024-10-10 11:36 | XMS_ITS | Encounter Summary ---
Author Organization [facility] Address [address] [place] [address] Phone Care Team Providers Care Guest Relations Agent Name Role Phone Agnieszka Escobar MD Primary Care Provider [phone] Encounter Details Date Type Department Care Team (Late st Contact Info) Description 06/23/2016 Documentation [facility] [place] Family Medicine [address] [place] [address] Family Medicine, Physician [address] [place] [address] Social History Tobacco Use Types Packs/Day Years [...] on filedocumented in this encounter Care Teams Guest Relations Agent Relationship Specialty Start Date End Date Agnieszka Escobar MD [address] [place] [address] [place] [address] PCP - General 01/28/17 01/25/23 documented as of this encounter
--- OUTSIDE RECORDS SUMMARY | 2024-10-10 11:36 | XMS_ITS | Encounter Summary ---
Author Organization [facility] Address [address] [place] [address] Phone Care Team Providers Care Farm Equipment Mechanic Name Role Phone Agnieszka Escobar MD Primary Care Provider [phone] Encounter Details Date Type Department Care Team (Late st Contact Info) Description 06/24/2016 Documentation [facility] [place] Family Medicine [address] [place] [address] Family Medicine, Physician [address] [place] [address] Social History Tobacco Use Types Packs/Day Years [...] on filedocumented in this encounter Care Teams Farm Equipment Mechanic Relationship Specialty Start Date End Date Agnieszka Escobar MD [address] [place] [address] [place] [address] PCP - General 01/28/17 01/25/23 documented as of this encounter
--- OUTSIDE RECORDS SUMMARY | 2024-10-10 11:36 | XMS_ITS | Encounter Summary ---
Author Organization [facility] Address [address] [place] [address] Phone Care Team Providers Care Key Maker Name Role Phone Agnieszka Escobar MD Primary Care Provider [phone] Encounter Details Date Type Department Care Team (Late st Contact Info) Description 06/24/2016 Documentation [facility] [place] Family Medicine [address] [place] [address] Family Medicine, Physician [address] [place] [address] Social History Tobacco Use Types Packs/Day Years [...] on filedocumented in this encounter Care Teams Key Maker Relationship Specialty Start Date End Date Agnieszka Escobar MD [address] [place] [address] [place] [address] PCP - General 01/28/17 01/25/23 documented as of this encounter
--- OUTSIDE RECORDS SUMMARY | 2024-10-10 11:36 | XMS_ITS | Encounter Summary ---
Author Organization [facility] Address [address] [place] [address] Phone Care Team Providers Care Sailing Master Name Role Phone Agnieszka Escobar MD Primary Care Provider [phone] Encounter Details Date Type Department Care Team (Late st Contact Info) Description 06/23/2016 Documentation [facility] [place] [address] [place] [address] Family Medicine, Physician [address] [place] [address] Social History Tobacco Use Types Packs/Day Years [...] on filedocumented in this encounter Care Teams Sailing Master Relationship Specialty Start Date End Date Agnieszka Escobar MD [address] [place] [address] [place] [address] PCP - General 01/28/17 01/25/23 documented as of this encounter
--- OUTSIDE RECORDS SUMMARY | 2024-10-10 11:36 | XMS_ITS | Encounter Summary ---
Author Organization [facility] Address [address] [place] [address] Phone Care Team Providers Care Needle Valve Operator Name Role Phone Agnieszka Escobar MD Primary Care Provider [phone] Encounter Details Date Type Department Care Team (Late st Contact Info) Description 06/24/2016 [place]ation [facility] [place] [address] [place] [address] Family Medicine, Physician [address] [place] [address] Social History Tobacco Use Types Packs/Day Years [...] on filedocumented in this encounter Care Teams Needle Valve Operator Relationship Specialty Start Date End Date Agnieszka Escobar MD [address] [place] [address] [place] [address] PCP - General 01/28/17 01/25/23 documented as of this encounter
--- OUTSIDE RECORDS SUMMARY | 2024-10-10 11:36 | XMS_ITS | Encounter Summary ---
Author Organization [facility] Address [address] [place] [address] Phone Care Team Providers Care Machine Stapler Name Role Phone Agnieszka Escobar MD Primary Care Provider [phone] Encounter Details Date Type Department Care Team (Late st Contact Info) Description 06/23/2016 Documentation [facility] [place] Family Medicine [address] [place] [address] Family Medicine, Physician [address] [place] [address] Social History Tobacco Use Types Packs/Day Years [...] on filedocumented in this encounter Care Teams Machine Stapler Relationship Specialty Start Date End Date Agnieszka Escobar MD [address] [place] [address] [place] [address] PCP - General 01/28/17 01/25/23 documented as of this encounter
[2024-10-10 11:48] LABS: Hematocrit 39.7 %; Hemoglobin 13.4 g/dl; Mean Corpuscular HGB Conc 33.8 g/dl; Mean Corpuscular Hemoglobin 28.4 pg; Mean Corpuscular Volume 84.1 fL; Mean Platelet Volume 11.9 fL (9.4-12.4); Platelet Count 248 X10*3/uL; Red Blood Count 4.72 X10*6/uL; Red Cell Distribution Width 12.4 % (11.0-16.0); White Blood Count 4.7 X10*3/uL
[2024-10-10 11:54] LABS: Estimated Average Glucose 100 mg/dL; Hemoglobin A1C 115.5114 umol/L; Hemoglobin A1c % 5.1 %; Total Hemoglobin (HGBA1C) 3535.1481 umol/L
[2024-10-10 12:12] LABS: Alanine Aminotransferase 78 U/L; Albumin Level 4.2 g/dL; Alkaline Phosphatase 83 U/L; Anion Gap 9; Aspartate Amino Transferase 51 U/L; Bilirubin Direct < 0.2 mg/dL; Bilirubin Total 0.2 mg/dL; Blood Urea Nitrogen 12 mg/dL; Calcium 9.3 mg/dL; Carbon Dioxide 26 mmol/L; Chloride 107 mmol/L; Cholesterol 147 mg/dL; Estimated Glomerular Filt Rate > 60; Glucose Random 89 mg/dL; HDL Cholesterol 36 mg/dL; LDL Cholesterol Calculated 80 mg/dL; Potassium 4.2 mmol/L; Sodium 138 mmol/L; Total Protein 7.7 g/dL; Triglycerides 155 mg/dL
[2024-10-10 12:29] LABS: Free T4 (Free Thyroxine) 1.05 ng/dL; Thyroid Stimulating Hormone 1.26 uIU/mL; Vitamin D 25-OH Total 14.1 ng/mL
[2024-10-10 12:30] LABS: HBS Num1 15.05 mIU/mL; HBsAGNum1 0.37 S/CO; HIV AB/AG Nonreactive; Hepatitis B Core Antibody Nonreactive; Hepatitis B Surface Antigen Negative; ~HepC Num1 0.12 S/CO; ~Hepatitis B Surface Antibody REACTIVE; ~Hepatitis C Antibody Nonreactive
[2024-10-10 15:16] LABS: CT PCR NOT DETECTED (Not Detect.); NG PCR NOT DETECTED (Not Detect.)
[2024-10-11 04:10] LABS: Hepatitis A Antibody IgG REACTIVE; ~Hepatitis A Antibody IgG 10.49 S/CO
[2024-10-12 10:13] LABS: RPR Rapid Plasma Reagin NON-REACTIVE (NON-REACTIVE)
== END 2024-10-10 09:58 | disposition home or self-care (01) ==
LOC: HO.HHCL 09:57
PROVIDERS: Visit Provider Family Medicine
DX: Z00.00 Encounter for general adult medical examination without abnormal findings (principal); Z68.31 Body mass index [BMI] 31.0-31.9, adult
CPT/HCPCS: 80048; 80061; 80076; 82306; 83036; 84439; 84443; 85027; 86592; 86704; 86706; 86708; 86803; 87340; 87389; 87491; 87591